=== PATIENT | male | born 1990 | race Two or more races ===

== ENCOUNTER 2020-07-19 17:06 | Emergency (ER) | payer MEDICAID ==
[~2020-07-19] VITALS: Ht 172.7 cm; Wt 63.6 kg
[2020-07-19 17:55] VITALS: BP 125/73
[2020-07-19] MEDS ORDERED: FLUORESCEIN SODIUM 1 MG STRIP OD ONE (18:00)
[2020-07-19] MEDS ORDERED: PROPARACAINE HCL 0.5% 15 ML OPHTHALMIC SOLUTION OU ONE (18:00)
[2020-07-19] MEDS ORDERED: ERYTHROMYCIN 0.5% 3.5 GM TUBE OPHTHALMIC OINTMENT OS ONE (18:30)
[2020-07-19] MEDS ORDERED: PERTUSS(ACELL),DIPH,TET VAC/PF 0.5 ML SYRINGE IM. ONE (18:45)
== END 2020-07-19 19:28 | disposition home or self-care (01) ==
LOC: EMS 17:10
DX: T15.02XA Foreign body in cornea, left eye, initial encounter (principal); W45.8XXA Other foreign body or object entering through skin, initial encounter; Y93.89 Activity, other specified; Y92.89 Other specified places as the place of occurrence of the external cause; Y99.8 Other external cause status
CPT/HCPCS: 65220; 90471; 90715; 99173; 99283; 99284